=== PATIENT | female | born 1945 | race Caucasian/White ===

== ENCOUNTER 2017-06-30 19:24 | Inpatient (IN) ==
--- NOTE | 2017-06-30 21:08 | PROVIDER DOCUMENTATION ---
This chart was entered by Carli Patel Scribe, acting as scribe for Jan De La Rosa MD. HPI-Abdominal Pain/GI Problem - General Chief Complaint: Return/Recheck Stated Complaint: SEV ABD PAIN Time Seen by Provider: 06/30/17 20:51 Source: patient Allergies/Adverse Reactions: Patient Allergies Allergy/AdvReac Type Severity Reaction Status Date / Time Sulfa (Sulfonamide Allergy Intermediate SWELLING Verified 05/03/16 20:24 Antibiotics) Home Medications: Home Medication List Medication Instructions Recorded Confirmed Last Taken Type NK [No Home Medications] 06/30/17 06/30/17 Unknown History - History of Present Illness-ABD Nature of Presenting Problems: 72 year old F presents to the ED with a cc of ABD pain and constipation. PT states last bowel movement was 3 days ago and has not eaten in 2 days. PT also c /o nausea. Abdominal Pain Onset Location: reports: RLQ, LLQ Pain Radiation: reports: no radiation Quality of Pain: reports: aching Severity in ED: reports: mild Onset/Duration: reports: 3 days ago Timing: reports: still present Modifying Factors: improves with: nothing Bruising or Bleeding Gums?: No Similar Symptoms Previously?: No Recently seen or treated by another doctor?: No Review of Systems - Adult - REVIEW OF SYSTEMS - ADULT Constitutional: denies: chills, fever Eyes: reports: no symptoms reported Ears, Nose, Mouth & Throat: reports: no symptoms reported Cardiovascular: denies: chest pain, palpitations Respiratory: denies: cough, shortness of breath Gastrointestinal: reports: abdominal pain. denies: diarrhea, nausea, vomiting Genitourinary: denies: dysuria, hematuria Musculoskeletal: denies: bone pain, muscle aches, muscle weakness Integumentary: denies: skin sores/ulcer, skin thickening Neurological: denies: dizziness/vertigo, headache/migraines Psychiatric: reports: no symptoms reported Endocrine: reports: no symptoms reported Hematologic/Lymphatic: reports: no symptoms reported Allergic/Immunologic: reports: no symptoms reported All Other Systems: Reviewed and Negative Past History - Adult - PAST MEDICAL HISTORY-ADULT Review of Records: reports: Nursing Assessment Review, Medications Reviewed Major Childhood Illnesses: reports: denies history Gastrointestinal: reports: other (hernia) - PRIOR SURGERIES/PROCEDURES Surgical/Procedure History: reports: cholecystectomy, hysterectomy, BTL - IMMUNIZATION STATUS Childhood Immunizations: See Nurse Assessment Flu Vaccine: See Nurse Assessment - SOCIAL HISTORY Smoking: cigarettes Provider spent 3-5 mins advising pt. on dangers of tobacco.: Discussed manners to quit use, and f/u contacts for add'l counseling. Substance Use: none/never Alcohol Use Frequency: occasionally Living Situation: family Physical Exam-General - PHYSICAL EXAM-ADULT Initial Vital Signs Reviewed: Yes - CONSTITUTIONAL General Appearance: appears well, alert, no apparent distress - HEAD, EARS, NOSE, MOUTH & THROAT HENMT: other (dry mucous membranes) - RESPIRATORY Respiratory: wheezing (expiratory) - CARDIOVASCULAR Cardiovascular: normal peripheral pulses, regular rate, rhythm, no edema - GASTROINTESTINAL (ABDOMEN) Abdominal Exam: normal bowel sounds, non tender, soft - MUSCULOSKELETAL Extremity: normal inspection - SKIN Integumentary: normal color, normal turgor, warm/dry - PSYCHIATRIC Psych/Mental Status: normal mood/affect, normal thought content, normal thought process, oriented x 3 Progress - PLAN OF CARE/RESULTS Progress/Plan/Lab Results: Vital Signs - 8 hr 06/30/17 19:32 Temperature 98 F Pulse Rate 85 Respiratory Rate 18 Blood Pressure 129/74 O2 Sat by Pulse Oximetry 93 L Result Diagrams: 06/30/17 20:10 06/30/17 20:10 - CT/MRI 1 CT Study: Abdomen, Pelvis Impression: Abnormal (FINDINGS: The lung bases are clear and the heart size is normal. There is a large hiatal hernia. There are cholecystectomy clips. There is benign dilation of the common bile duct. Otherwise abdominal organs are normal. There is severe inflammation at the left pelvic sidewall involving the distal sigmoid colon. There are numerous diverticula here. No drainable fluid collection. No free air. There is a large fat-containing right inguinal hernia. Urinary bladder and rectum are normal. There are moderate degenerative changes of the spine. No acute or suspicious bony lesion. IMPRESSION: Severe inflammation at the distal sigmoid colon consistent with diverticulitis. No free air or abscess. Recommend follow-up CT or colonoscopy after the patient is better to exclude chance of malignancy.-- Dr. Klein(radiologist)) - CONSULTS/PCP/HOSPITALIST Notification #1 *Consult/PCP/Hospitalist*: Dr. Giles(hospitalist) Time Discussed: 22:24 Reason/Comments: consult for admission Consult Disposition: Admit Departure - Departure Date of Disposition Decision: 06/30/17 Time of Disposition Decision: 22:27 DIAGNOSIS: Sigmoid diverticulitis Disposition: ADMITTED INPATIENT 09 Certified Medical Emergency: Emergent Condition: Stable - Critical Care Note This patient required my direct & personal management of CC.: No Attestation - Physician/ ARELY Attestation Patient care was provided by Advanced Practice Provider:: No The physician spent face to face time with patient:: Yes Advanced Practice Provider documentation review:: Supervising physician onsite and consulted in the evaluation and care of this patient. The physician did have a face to face encounter with the patient. This chart was documented by the indicated scribe, (Carli Patel Scribe) and accurately reflects the services I performed and decisions made by me, Jan De La Rosa MD, as attested by the provider's signature.
[2017-06-30] MEDS ORDERED: ZOFRAN IV ONE (21:09)
[2017-06-30] MEDS ORDERED: DILAUDID IV ONE (21:09)
[2017-06-30 21:13] LABS: MANUAL DIFF NEEDED? NO
[2017-06-30 21:15] LABS: BASO% 0.2 % (0.0-0.8); EOS# 0.02 X1000 (0.0-0.7); EOS% 0.2 % (0.0-10.0); HEMATOCRIT 46.6 % (37.0-47.0); HEMOGLOBIN 16.3 g/dL (12.0-16.0); IMM GRAN# 0.03 X1000 (0.0-0.04); IMM GRAN% 0.2 % (0.0-0.5); LYMPH# 2.11 X1000 (1.2-3.4); LYMPH% 16.3 % (20.5-51.1); MCV 88.8 FL (81-99); MONO# 0.98 X1000 (0.11-0.59); MONO% 7.6 % (1.7-9.3); MPV 9.5 FL (7.4-10.4); NEUT% 75.5 % (42.2-75.2); PLT 311 X1000 (130-400); RBC 5.25 XMIL (4.2-5.4)
[2017-06-30 21:33] LABS: AGAP 14; ALBUMIN 4.4 g/dL (3.5-5.0); ALKALINE PHOSPHATASE 104 U/L (32-104); BUN 12 mg/dL (8-22); CALCIUM 9.6 mg/dL (8.8-10.2); CHLORIDE 97 mmol/L (98-107); COSMO 273; GOT 12 U/L (10-30); GPT 12 U/L (10-36); LIPASE 16 U/L (13-60); POTASSIUM 3.4 mmol/L (3.5-5.1); SODIUM 137 mmol/L (136-145); TCO2 26 mmol/L (25-35); TOTAL PROTEIN 7.5 g/dL (6.3-8.3)
[2017-06-30 21:50] LABS: BILIRUBIN URINE NEGATIVE (NEGATIVE); BLOOD URINE NEGATIVE (NEGATIVE); CLARITY SL. CLOUDY (CLEAR); COLOR YELLOW; GLUCOSE URINE NEGATIVE (NEGATIVE); LEUKOCYTES URINE TRACE (NEGATIVE); NITRITE URINE NEGATIVE (NEGATIVE); PROTEIN URINE TRACE mg/dL (NEGATIVE); UROBILINOGEN URINE 1+(1 mg/dL)
[2017-06-30 21:52] LABS: URINE SOURCE CLEAN CATCH
[2017-06-30 21:53] LABS: URINE WBC <10 /HPF (<10)
[2017-06-30 21:54] LABS: URINE CULTURE PL NEEDED? YES; URINE EPITHELIAL CELLS <10 /HPF (<10); URINE RBC <10 /HPF (<10)
--- NOTE | 2017-06-30 22:13 | Diag Imaging Result Doc PS360 ---
CT ABD/PELVIS W/ IV CONT ONLY - 06/30/2017 INDICATION: lower abdomen pain TECHNIQUE: A CT dose reduction protocol was used. COMPARISON: None FINDINGS: The lung bases are clear and the heart size is normal. There is a large hiatal hernia. There are cholecystectomy clips. There is benign dilation of the common bile duct. Otherwise abdominal organs are normal. There is severe inflammation at the left pelvic sidewall involving the distal sigmoid colon. There are numerous diverticula here. No drainable fluid collection. No free air. There is a large fat-containing right inguinal hernia. Urinary bladder and rectum are normal. There are moderate degenerative changes of the spine. No acute or suspicious bony lesion. IMPRESSION: Severe inflammation at the distal sigmoid colon consistent with diverticulitis. No free air or abscess. Recommend follow-up CT or colonoscopy after the patient is better to exclude chance of malignancy. Electronically signed by Sandoval Klein 06/30/2017 10:11 PM
[2017-06-30] MEDS ORDERED: CIPRO 400 MG/D5W 400 MG/200 ML IVPB IV ONE (22:23)
[2017-06-30] MEDS ORDERED: FLAGYL 500 MG/NS 500 MG/100 ML IVPB IV ONE (22:27)
[2017-06-30] MEDS ORDERED: NS 3,000 ML IV ONE (22:30)
[2017-06-30] MEDS ORDERED: ZOFRAN IV PRN (22:30)
[2017-07-01] MEDS: DILAUDID IV PRN ×2 (02:43→07:36)
[2017-07-01] MEDS: FLAGYL 500 MG/NS 500 MG/100 ML IVPB IV SCH ×3 (05:07→18:17)
--- NOTE | 2017-07-01 08:26 | PROGRESS NOTE ---
DATE: 07/01/2017 Patient notes that she has been having abdominal pain off and on for the past couple of days. She has no previous history of diverticulitis. Does not remember her last colonoscopy. States the pain is worse and she thought she was constipated, as she cannot have a bowel movement. However, the pain and nausea continue to worsen. She presented to the ER and was subsequently diagnosed with diverticulitis. We will continue her in the hospital. We will continue to follow her medication-cox. Place her on Cipro and Flagyl. Use Dilaudid as needed. Keep her n.p.o. today, hopefully advance diet tomorrow. cc: Akash Giles MD
[2017-07-01] MEDS: CIPRO 400 MG/D5W 400 MG/200 ML IVPB IV SCH ×2 (12:09→23:32)
[2017-07-01] MEDS ORDERED: SODIUM CHLORIDE 0.9% INJ SCH (14:30)
--- NOTE | 2017-07-01 14:42 | HISTORY AND PHYSICAL ---
CHIEF COMPLAINT: Abdominal pain. HISTORY OF PRESENT ILLNESS: This is a 72-year-old female who presented to the emergency room after being evaluated at [facility] emergency room. She complains of abdominal pain and constipation, with the constant urge to have a bowel movement, stating her last bowel movement was 3 days prior. She did state that this pain started 3 days prior, that it does not radiate, and that she has had no appetite for the last 2 days. She denied any nausea, vomiting, any recent diarrhea, constipation, any black or bloody vomitus, black or bloody stools. She denied any fever or chills. Of note, she was seen at [facility]'s emergency room, where she did have a flat and upright, which revealed no significant constipation. No abnormal calcifications. No bowel obstruction. According to the records, the patient eloped from the ER about 3 hours after she was triaged. She then presented to [place]'s emergency room within about 30 minutes, wishing to be evaluated by another physician. A CT scan of the abdomen and pelvis was performed, which revealed severe inflammation at the distal sigmoid colon consistent with diverticulitis. No free air or abscess. She was given Cipro, Flagyl, and Dilaudid for pain and admitted for further evaluation and treatment. PAST MEDICAL HISTORY: Inguinal hernia. PAST SURGICAL HISTORY: 1. Cholecystectomy. 2. Hysterectomy. 3. Tubal ligation. SOCIAL HISTORY: She smokes a pack a day. She denies alcohol or illicit drug use. ALLERGIES: Sulfa, which causes swelling. HOME MEDICATIONS: None. REVIEW OF SYSTEMS: A 14 point review of systems is discussed with the patient, with pertinent positives stated in the HPI. She denied chest pain, palpitations, dizziness, syncope, headaches, shortness of breath, cough, fever, chills, PND, orthopnea, nausea, vomiting, diarrhea, black or bloody vomitus, black or bloody stools, any hematuria, dysuria, frequency, urgency. PHYSICAL EXAMINATION: GENERAL: This is a 72-year-old female who is sitting in the bed with no distress. VITAL SIGNS: Blood pressure is 105/63 with a heart rate of 86, respirations are 18 with a temperature of 98 degrees oral and room air saturations of 91-94%. HEENT: Head is normocephalic, atraumatic. Pupils are equal, round, react to light. EOMs are intact. Mucous membranes are moist. NECK: Supple with trachea midline. CARDIOVASCULAR: Regular rate and rhythm. S1 and S2 appreciated. PULMONARY: Breath sounds are clear with no increased work of breathing noted. GASTROINTESTINAL: Abdomen is soft. She has had some generalized tenderness specifically to the right and left lower quadrants. No guarding with bowel sounds in all 4 quadrants. MUSCULOSKELETAL: Good range of motion of the joints. EXTREMITIES: No clubbing, cyanosis, or edema. Calves are nontender and pulses are palpable x4. NEUROLOGIC: She is alert and oriented x3 with cranial nerves 2-12 grossly intact. DIAGNOSTICS: CBC: WBC is 12.9 with a hemoglobin of 16.3, hematocrit 46.6, and platelets of 311,000. Chem: Sodium is 137, potassium 3.4, BUN 12, creatinine 0.6 with a glucose of 95. DIAGNOSTICS: CT of the abdomen and pelvis: Revealed severe inflammation at the distal sigmoid colon consistent with diverticulitis. No free air or abscess with a large fat- containing right inguinal hernia. Urine culture: Pending. ASSESSMENT AND PLAN: 1. Diverticulitis. 2. Abdominal pain secondary to #1. 3. Tobacco use and abuse. 4. DVT prophylaxis. 5. GI prophylaxis. She will be admitted to the hospital. She will remain n.p.o. We will give IV hydration as well as IV Flagyl and Cipro. We will give Dilaudid as needed for pain. For DVT prophylaxis, we will use SCDs and for GI prophylaxis we will use Protonix. We will continue to trend her labs. Further treatments pending hospital course. Dictated by ISRAEL Etienne for Akash Giles MD cc: ISRAEL Etienne MD [facility]
[2017-07-01] MEDS: PROTONIX IV SCH (15:18)
[2017-07-02] MEDS: FLAGYL 500 MG/NS 500 MG/100 ML IVPB IV SCH ×2 (00:49→06:17)
[2017-07-02 05:28] LABS: HEMATOCRIT 39.3 % (37.0-47.0); HEMOGLOBIN 13.3 g/dL (12.0-16.0); MCH 30.6 PG (27-31); MCHC 33.8 g/dL (33-37); MCV 90.3 FL (81-99); MPV 9.2 FL (7.4-10.4); RBC 4.35 XMIL (4.2-5.4)
[2017-07-02 05:42] LABS: AGAP 9; BUN 9 mg/dL (8-22); CALCIUM 8.4 mg/dL (8.8-10.2); CHLORIDE 102 mmol/L (98-107); COSMO 270; POTASSIUM 3.7 mmol/L (3.5-5.1); SODIUM 136 mmol/L (136-145); TCO2 25 mmol/L (25-35)
[2017-07-02] MEDS ORDERED: FLAGYL 500 MG/NS 500 MG/100 ML IVPB IV SCH (08:09)
[2017-07-02] MEDS: DILAUDID IV PRN (09:47)
[2017-07-02] MEDS: CIPRO 400 MG/D5W 400 MG/200 ML IVPB IV SCH ×2 (11:36→22:05)
[2017-07-02] MEDS: FLAGYL PO SCH ×3 (11:37→23:02)
[2017-07-02] MEDS: PROTONIX IV SCH (15:44)
--- NOTE | 2017-07-02 15:53 | PROGRESS NOTE ---
DATE: 07/02/2017 SUBJECTIVE: Ms. Rosario is feeling better today. The urge to have a bowel movement is decreasing. She has had less abdominal pain. OBJECTIVE: Vital Signs: Blood pressure is 115/54 with a heart rate of 78, respirations are 18, temperature is 97.8 degrees oral with room air saturation 93-98%. General: This is a 72-year-old female who is sitting at the bedside in no distress. Cardiovascular: Regular rate and rhythm. S1 and S2 appreciated. Pulmonary: Breath sounds are clear with no increased work of breathing noted. Gastrointestinal: Soft, nontender with bowel sounds in all 4 quadrants. Skin: Warm and dry with no rashes or lesions noted. Extremities: No clubbing, cyanosis, or edema. Calves are nontender. Pulses are palpable x4. LABORATORIES: WBC is 6.7, with a hemoglobin of 13.3, hematocrit 39.3, platelets of 245,000. Sodium is 136, potassium 3.7, BUN 9, creatinine 0.5 with a glucose of 85. Urine culture revealed no growth. ASSESSMENT AND PLAN: 1. Diverticulitis. She is feeling better. She has remained afebrile with no white count. We will advance her diet. We will continue with Flagyl and Cipro for antibiotic coverage. Dictated by ISRAEL Etienne for Akash Giles MD cc: ISRAEL Etienne MD
[2017-07-03] MEDS: FLAGYL PO SCH ×2 (05:03→12:07)
[2017-07-03] MEDS: DILAUDID IV PRN (09:14)
[2017-07-03] MEDS: CIPRO 400 MG/D5W 400 MG/200 ML IVPB IV SCH (10:54)
[2017-07-03 11:26] VITALS: BP 133/75
--- NOTE | 2017-07-03 16:13 | PROGRESS NOTE ---
DATE: 07/03/2017 DATE OF DISCHARGE: 07/03/17. ADDENDUM: Patient was seen. She is tolerating food well. She is still having some abdominal pain, although states it is tremendously better than admission. Denies any nausea, vomiting. Denies any diarrhea. She has had positive bowel movements. Denies any blood in her stool. The patient will be discharged home. She will continue antibiotics at home for a total of 7 days. She will follow up outpatient with primary care of choice. cc: Akash Giles MD
--- NOTE | 2017-07-03 21:24 | DISCHARGE SUMMARY ---
ADMISSION DATE: 07/01/2017 DISCHARGE DATE: 07/03/2017 DIAGNOSES: 1. Diverticulitis. 2. Abdominal pain, resolved. 3. Leukocytosis, resolved. DIAGNOSTIC DATA: On 06/30/2017, CT of the abdomen and pelvis revealed severe inflammation at the distal sigmoid colon consistent with diverticulitis, no free air or abscess. HOSPITAL COURSE: Ms. Rosario presented to the emergency room having abdominal pain for a few days prior, with the urge to defecate. CT scan revealed diverticulitis for which she reveived IV Cipro and Flagyl. She has improved. She has no pain. No urge to have a bowel movement. Her abdomen is nontender. Nausea and vomiting have resolved. DISCHARGE PHYSICAL EXAMINATION: CARDIOVASCULAR: Regular rate and rhythm. S1 and S2 are appreciated. PULMONARY: Breath sounds are clear with no increased work of breathing noted. GASTROINTESTINAL: Abdomen is soft, nontender and nondistended with bowel sounds in all 4 quadrants. BACK: No CVAT. No spine tenderness. MUSCULOSKELETAL: Good range of motion of the joints. EXTREMITIES: No cyanosis, clubbing or edema. Calves are nontender, and pulses are palpable x4. NEUROLOGICAL: She is alert and oriented x3. DISCHARGE VITAL SIGNS: Blood pressure is 133/75 with heart rate of 70, respirations are 18, temperature is 98, with room air saturations of 95% to 98%. DISCHARGE MEDICATIONS: Flagyl 500 mg p.o. q.8 hours, Cipro 500 mg p.o. b.i.d., both for 8 days to complete a 10-day regimen. DISCHARGE FOLLOWUP: She is to follow up with her primary care physician in 2 weeks, sooner if she develops fever, a temperature over 101, difficulty or inability to have a bowel movement, persistent diarrhea, any black or bloody vomitus, black or bloody stools, return of abdominal pain or any questions or concerns that she may have. She is being discharged in stable condition with family members. This is a greater than 30 minute discharge. Dictated by ISRAEL Etienne for Akash Giles MD cc: ISRAEL Etienne MD [facility]
== END 2017-07-03 14:10 | disposition home or self-care (01) ==
LOC: P.ED 19:24 → P.MEDSURG 07-01 00:49
PROVIDERS: ATTEND Family Medicine